=== PATIENT | female | born 1995 | race Caucasian/White ===

== ENCOUNTER 2019-06-09 23:55 | Observation (INO) | payer OTHER ==
[~2019-06-09] VITALS: Ht 162.6 cm; Wt 86.2 kg
[2019-06-10 03:17] LABS: BASOPHIL % 1.5 % (0-2); PLATELET COUNT 280 x10^3mcL (130-400); RED CELL DISTRIBUTION WIDTH 14.2 % (11.5-14.5)
[2019-06-10 03:21] LABS: CALCIUM 8.5 mg/dL (8.5-10.1); CARBON DIOXIDE 24.1 mmol/L (21-32); CHLORIDE SERUM 107 mmol/L (98-107); CREATININE SERUM 0.8 mg/dL (0.6-1.0); GFR1 > 60 mL/min; GLUCOSE SERUM 137 mg/dL (74-106); POTASSIUM SERUM 4.5 mmol/L (3.5-5.1); SODIUM SERUM 140 mmol/L (136-145)
[2019-06-10 03:28] LABS: ALBUMIN 3.5 g/dL (3.4-5.0); ALKALINE PHOSPHATASE 78 U/L (46-116); ALT/SGPT 26 U/L (14-59); AST/SGOT 17 U/L (15-37); BILIRUBIN TOTAL 0.34 mg/dL (0.20-1.00); TOTAL PROTEIN, SERUM 7.9 g/dL (6.4-8.2)
[2019-06-10 07:41] VITALS: BP 117/65
[2019-06-10 08:40] VITALS: BP 107/54
[2019-06-10 12:20] VITALS: BP 112/69
[2019-06-10] MEDS ORDERED: ATORVASTATIN CA10 M1 PO (16:55)
[2019-06-10 17:43] VITALS: BP 108/68
[2019-06-10 20:54] VITALS: BP 105/54
[2019-06-11 05:41] VITALS: BP 110/71
[2019-06-11 06:40] LABS: BASOPHIL % 0.2 % (0-2); PLATELET COUNT 193 x10^3mcL (130-400)
[2019-06-11 06:49] LABS: RED CELL DISTRIBUTION WIDTH 14.8 % (11.5-14.5)
[2019-06-11 07:12] LABS: CALCIUM 8.2 mg/dL (8.5-10.1); CARBON DIOXIDE 24.3 mmol/L (21-32); CHLORIDE SERUM 104 mmol/L (98-107); CREATININE SERUM 0.8 mg/dL (0.6-1.0); GFR1 > 60 mL/min; GLUCOSE SERUM 99 mg/dL (74-106); POTASSIUM SERUM 3.5 mmol/L (3.5-5.1); SODIUM SERUM 139 mmol/L (136-145)
[2019-06-11 07:56] VITALS: BP 118/72
== END 2019-06-11 14:47 | disposition home or self-care (01) ==
LOC: ED 23:55 → DU 06-10 05:55
PROVIDERS: Emergency Medicine; Internal Medicine; ADMIT Internal Medicine
DX: K52.9 Noninfective gastroenteritis and colitis, unspecified (principal); E86.0 Dehydration; R50.9 Fever, unspecified; J45.909 Unspecified asthma, uncomplicated
CPT/HCPCS: 87046; 87046-59; G0378; J1200; J2405; J2765; J7030